=== PATIENT | male | born 1950 | race Caucasian/White ===

== ENCOUNTER → 2020-03-25 12:07 | Outpatient (BNVA) | payer OTHER, SELFPAY | PROVIDERS: Family Provider Family Medicine; PCP Family Medicine; Visit Provider Internal Medicine Cardiovascular Disease | DX: Z79.899 Other long term (current) drug therapy (principal); Z79.01 Long term (current) use of anticoagulants; R79.1 Abnormal coagulation profile; R06.02 Shortness of breath | CPT/HCPCS: 80048; 80076; 84443; 85025 ==

== ENCOUNTER → 2020-04-23 11:02 | Outpatient (BNVA) | payer OTHER, SELFPAY | PROVIDERS: Family Provider Family Medicine; PCP Family Medicine; Visit Provider Internal Medicine Cardiovascular Disease | DX: E03.9 Hypothyroidism, unspecified (principal) | CPT/HCPCS: 84443 ==

== ENCOUNTER 2020-08-14 13:17 | Outpatient (CLI) | payer OTHER, SELFPAY ==
--- NOTE | 2020-08-14 13:27 | CT_ITS ---
WS: [id number] CT CERVICAL SPINE TECHNIQUE: Noncontrast CT of the cervical spine with coronal and sagittal reformatted images. CLINICAL INFORMATION: SPINAL CORD INJURY COMPARISON: None. DLP: 626.[address] scans at [facility] use at least one of these dose optimization techniques: automat ed exposure control; mA and/or kV adjustment per patient size (includes targeted exams where dose is matched to clinical indication); or iterative reconstruction. FINDINGS: Straightening of the normal cervical lordosis. Prior postoperative changes anterior interbody cervica l fusion C4-C6. Interbody fusion grafts C4-C5 and C5-C6. Evidence of bony bridging beyond the confine s of the grafts. Posterior element fusion C3-C6 with interconnecting rods and dorsal lateral bone gra ft material. C2-C3: Mild disc bulging. Moderate facet arthropathy. Spinal canal and foramen are patent. C3-C4: Postoperative changes posterior fusion with laminectomy defects. Moderate bilateral bony hossein inal narrowing right greater than left. Spinal canal is patent. Moderate facet arthropathy. C4-C5: Postoperative changes anterior interbody cervical fusion. Laminectomy defects. Moderate left a nd mild right bony foraminal narrowing. C5-C6: Postoperative changes anterior interbody cervical fusion and posterior elements fusion. Modera te to severe right bony foraminal narrowing. Moderate left bony foraminal narrowing. Laminectomy defe cts. C6-C7: Postoperative changes disc osteophyte complex with endplate ridging. Moderate bilateral bony f oraminal narrowing right greater than left with osteophytic ridging. Spinal canal is patent. Laminect dot defects. C7-T1: Left eccentric disc osteophyte complex with mild left and no significant right foraminal narro wing. Spinal canal is patent. Lung apices are well aerated. Visualized thyroid is unremarkable. Dense carotid bulb calcification. CT/CT cervical spin wo con* [id number] IMPRESSION: 1. Straightening of the normal cervical lordosis with anterior interbody cervi yaakov fusion C4-C6. Evidence of interbody bony fusion beyond the confines of the grafts. 2. Posterior element ninfa and screw fixation C3-C6. Decompressive laminectomy d efects at these levels. 3. No evidence of hardware loosening. 4. Multilevel moderate to severe bony foraminal narrowing described above wors e at bilateral C3-4, left C4-5, right C5-C6, and right C6-7.
== END 2020-08-14 13:18 | disposition home or self-care (01) ==
LOC: RAD 13:23
PROVIDERS: PCP Family Medicine; Visit Provider Family Medicine
DX: S14.109A Unspecified injury at unspecified level of cervical spinal cord, initial encounter (principal); X58.XXXA Exposure to other specified factors, initial encounter
CPT/HCPCS: 72125

== ENCOUNTER 2020-10-29 14:49 | Outpatient (CLI) | payer OTHER, SELFPAY ==
--- NOTE | 2020-10-29 14:54 | XR_ITS ---
WS: [id number] CERVICAL SPINE 3 VIEWS HISTORY: DISEASE OF SPINAL CORD, UNSPECIFIED COMPARISON: CT 08/14/2020 Anterior cervical hardware extends from C4 to C6 with interbody spacers at C4-5 and C5-6. No lucency around the hardware. Posterior fusion hardware extends from the facet joints of C3-C6. Vertical rods are intact. Bone grafting is evident around the posterior fusion hardware with mixed fusion. Soft tissues are normal. Lateral masses are aligned. Odontoid is intact. XR/XR cervical spine 3V* [id number] IMPRESSION: Anterior and posterior cervical fusion as described above. No complications are evident.
== END 2020-10-29 14:50 | disposition home or self-care (01) ==
LOC: RADWPI 14:52
PROVIDERS: PCP Family Medicine; Visit Provider Physician Assistant
DX: G95.9 Disease of spinal cord, unspecified (principal); M43.22 Fusion of spine, cervical region
CPT/HCPCS: 72040

== ENCOUNTER → 2021-08-12 15:14 | Outpatient (BNVA) | payer OTHER, SELFPAY | PROVIDERS: PCP Family Medicine; Visit Provider Internal Medicine Cardiovascular Disease | DX: Z79.899 Other long term (current) drug therapy (principal); Z79.01 Long term (current) use of anticoagulants; I50.33 Acute on chronic diastolic (congestive) heart failure; R06.02 Shortness of breath; I48.0 Paroxysmal atrial fibrillation; R79.1 Abnormal coagulation profile; M79.89 Other specified soft tissue disorders; I11.0 Hypertensive heart disease with heart failure; Z13.228 Encounter for screening for other metabolic disorders | CPT/HCPCS: 80048; 83880 ==

== ENCOUNTER → 2022-02-03 14:43 | Outpatient (BNVA) | payer OTHER, SELFPAY | PROVIDERS: PCP Family Medicine; Visit Provider Nurse Practitioner Family | DX: I10 Essential (primary) hypertension (principal); F17.200 Nicotine dependence, unspecified, uncomplicated; Z79.01 Long term (current) use of anticoagulants | CPT/HCPCS: 99213; 99214 ==

== ENCOUNTER → 2022-03-30 10:40 | Outpatient (BNVA) | payer OTHER, SELFPAY | PROVIDERS: PCP Family Medicine; Visit Provider Internal Medicine Cardiovascular Disease | DX: I48.0 Paroxysmal atrial fibrillation (principal); Z79.01 Long term (current) use of anticoagulants; I10 Essential (primary) hypertension; Z79.899 Other long term (current) drug therapy; R00.1 Bradycardia, unspecified; I44.0 Atrioventricular block, first degree; F17.200 Nicotine dependence, unspecified, uncomplicated | CPT/HCPCS: 99214 ==

== ENCOUNTER → 2022-09-07 14:16 | Outpatient (BNVA) | payer OTHER, SELFPAY | PROVIDERS: PCP Family Medicine; Visit Provider Nurse Practitioner Family | DX: I48.0 Paroxysmal atrial fibrillation (principal); I10 Essential (primary) hypertension; Z79.01 Long term (current) use of anticoagulants; F17.210 Nicotine dependence, cigarettes, uncomplicated | CPT/HCPCS: 99214 ==

== ENCOUNTER → 2023-04-20 10:49 | Outpatient (BNVA) | payer OTHER, SELFPAY | PROVIDERS: PCP Family Medicine; Visit Provider Internal Medicine Cardiovascular Disease | DX: I48.0 Paroxysmal atrial fibrillation (principal); I10 Essential (primary) hypertension; Z79.899 Other long term (current) drug therapy; Z79.01 Long term (current) use of anticoagulants; F17.290 Nicotine dependence, other tobacco product, uncomplicated | CPT/HCPCS: 99213 ==

== ENCOUNTER → 2023-11-02 13:21 | Outpatient (BNVA) | payer OTHER, SELFPAY | PROVIDERS: PCP Family Medicine; Visit Provider Nurse Practitioner Family | DX: I48.0 Paroxysmal atrial fibrillation (principal); I10 Essential (primary) hypertension; F17.200 Nicotine dependence, unspecified, uncomplicated; Z79.01 Long term (current) use of anticoagulants | CPT/HCPCS: 36415; 80048; 85025; 99214 ==

== ENCOUNTER → 2024-02-16 10:10 | Outpatient (BNVA) | payer OTHER, SELFPAY | PROVIDERS: PCP Family Medicine; Visit Provider Internal Medicine Cardiovascular Disease | DX: I48.0 Paroxysmal atrial fibrillation (principal); I10 Essential (primary) hypertension; Z86.79 Personal history of other diseases of the circulatory system; Z79.899 Other long term (current) drug therapy; F17.200 Nicotine dependence, unspecified, uncomplicated; Z79.01 Long term (current) use of anticoagulants | CPT/HCPCS: 99214 ==

== ENCOUNTER → 2024-04-18 13:29 | Outpatient (BNVA) | payer OTHER, SELFPAY | PROVIDERS: PCP Family Medicine; Visit Provider Nurse Practitioner Family | DX: I48.0 Paroxysmal atrial fibrillation (principal) | CPT/HCPCS: 93005; 99214 ==

== ENCOUNTER → 2024-12-26 10:52 | Outpatient (BNVA) | payer OTHER, SELFPAY | PROVIDERS: PCP Family Medicine; Visit Provider Nurse Practitioner Family | DX: I48.0 Paroxysmal atrial fibrillation (principal); I10 Essential (primary) hypertension | CPT/HCPCS: 99213 ==

== ENCOUNTER → 2025-04-03 13:14 | Outpatient (BNVA) | payer OTHER, SELFPAY | PROVIDERS: PCP Family Medicine; Visit Provider Thoracic Surgery (Cardiothoracic Vascular Surgery) | DX: I96 Gangrene, not elsewhere classified (principal); L97.522 Non-pressure chronic ulcer of other part of left foot with fat layer exposed | CPT/HCPCS: 11042 ==

== ENCOUNTER 2025-04-04 13:21 | Outpatient (CLI) | payer OTHER, SELFPAY ==
--- NOTE | 2025-04-04 13:28 | XR_ITS ---
WS: [id number] XR foot LT min 3V* [id number] REASON FOR EXAM: Left Foot wound FINDINGS: No fracture or focal bone lesion. No bone erosion or periosteal reaction. Mild joint space narrowing with mild subchondral sclerosis in the DIP and PIP joints of the toes. Remainder of the joint spaces of the forefoot are intact and relatively well preserved. The joint spaces of the midfoot are intact and relatively well preserved. Subtalar joint is intact and relatively well preserved. 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 No findings of osteomyelitis noted.
== END 2025-04-04 13:22 | disposition home or self-care (01) ==
LOC: RAD 13:24
PROVIDERS: PCP Family Medicine; Visit Provider Thoracic Surgery (Cardiothoracic Vascular Surgery)
DX: L97.522 Non-pressure chronic ulcer of other part of left foot with fat layer exposed (principal); M19.072 Primary osteoarthritis, left ankle and foot
CPT/HCPCS: 73630

== ENCOUNTER 2025-04-11 15:31 | Outpatient (CLI) | payer OTHER, SELFPAY ==
--- NOTE | 2025-04-11 15:46 | USR_ITS ---
PROCEDURE INFORMATION: Exam: US Duplex Left Lower Extremity Arteries Or Arterial Bypass Grafts Exam date and time: 04/11/2025 3:51 PM Age: 75 years old Clinical indication: Other: Non healing ulcer; Additional info: Left foot wound TECHNIQUE: Imaging protocol: Left Real-time duplex scan of the arteries or arterial bypass grafts of the left lower extremity with 2-D nelson scale, color Doppler flow and spectral waveform analysis. Images documented and saved. COMPARISON: CR XR foot LT min 3V* [id number] 04/04/2025 1:37 PM FINDINGS: Left external iliac artery: Left iliac/common femoral artery: No occlusion or significant stenosis. Multiphasic waveform. Left common femoral artery: No occlusion or significant stenosis. Normal waveform. Left superficial femoral artery: No occlusion or significant stenosis. Multiphasic waveform. Left popliteal artery: No occlusion or significant stenosis. Multiphasic waveform. Left calf/foot arteries: No occlusion or significant stenosis in the visualized arteries. Dorsalis pedis artery is patent. Abnormal monophasic waveform within the posterior tibial and dorsalis pedis arteries. Other findings: Left RODRIGO is 1.0. US/[place] [id number] IMPRESSION: 1. Abnormal monophasic waveforms within the posterior tibial and dorsalis pedis arteries suggesting small-vessel runoff disease [id number] on the left. 2. No significant stenosis or occlusion otherwise, with multiphasic waveform at and above the knee. 3. Left ABIs 1.0.
== END 2025-04-11 15:32 | disposition home or self-care (01) ==
LOC: RAD 15:32
PROVIDERS: PCP Family Medicine; Visit Provider Thoracic Surgery (Cardiothoracic Vascular Surgery)
DX: L97.522 Non-pressure chronic ulcer of other part of left foot with fat layer exposed (principal); I73.9 Peripheral vascular disease, unspecified
CPT/HCPCS: 93926; 97597

== ENCOUNTER → 2025-04-18 13:52 | Outpatient (BNVA) | payer OTHER, SELFPAY | PROVIDERS: PCP Family Medicine; Visit Provider Thoracic Surgery (Cardiothoracic Vascular Surgery) | DX: I96 Gangrene, not elsewhere classified (principal); L97.521 Non-pressure chronic ulcer of other part of left foot limited to breakdown of skin | CPT/HCPCS: 97597; A6021 ==

== ENCOUNTER → 2025-04-25 14:46 | Outpatient (BNVA) | payer OTHER, SELFPAY | PROVIDERS: PCP Family Medicine; Visit Provider Thoracic Surgery (Cardiothoracic Vascular Surgery) | DX: I96 Gangrene, not elsewhere classified (principal); L97.521 Non-pressure chronic ulcer of other part of left foot limited to breakdown of skin | CPT/HCPCS: 97597; A6021 ==

== ENCOUNTER → 2025-05-09 12:51 | Outpatient (BNVA) | payer OTHER, SELFPAY | PROVIDERS: PCP Family Medicine; Visit Provider Thoracic Surgery (Cardiothoracic Vascular Surgery) | DX: I96 Gangrene, not elsewhere classified (principal); L97.521 Non-pressure chronic ulcer of other part of left foot limited to breakdown of skin | CPT/HCPCS: 97597; A6021 ==

== ENCOUNTER → 2025-05-23 13:26 | Outpatient (BNVA) | payer OTHER, SELFPAY | PROVIDERS: PCP Family Medicine; Visit Provider Thoracic Surgery (Cardiothoracic Vascular Surgery) | DX: I96 Gangrene, not elsewhere classified (principal); L97.521 Non-pressure chronic ulcer of other part of left foot limited to breakdown of skin | CPT/HCPCS: 97597 ==

== ENCOUNTER → 2025-06-05 13:17 | Outpatient (BNVA) | payer OTHER, SELFPAY | PROVIDERS: PCP Family Medicine; Visit Provider Thoracic Surgery (Cardiothoracic Vascular Surgery) | DX: I96 Gangrene, not elsewhere classified (principal); L97.521 Non-pressure chronic ulcer of other part of left foot limited to breakdown of skin | CPT/HCPCS: 97597 ==

== ENCOUNTER → 2025-07-03 13:01 | Outpatient (BNVA) | payer OTHER, SELFPAY | PROVIDERS: PCP Family Medicine; Visit Provider Thoracic Surgery (Cardiothoracic Vascular Surgery) | DX: I96 Gangrene, not elsewhere classified (principal); L97.521 Non-pressure chronic ulcer of other part of left foot limited to breakdown of skin ==

== ENCOUNTER → 2025-08-13 14:37 | Outpatient (BNVA) | payer OTHER, SELFPAY | PROVIDERS: PCP Family Medicine; Visit Provider Thoracic Surgery (Cardiothoracic Vascular Surgery) | DX: I96 Gangrene, not elsewhere classified (principal); L97.521 Non-pressure chronic ulcer of other part of left foot limited to breakdown of skin | CPT/HCPCS: 97597; A6210; A6212 ==

== ENCOUNTER → 2025-08-27 14:20 | Outpatient (BNVA) | payer OTHER, SELFPAY | PROVIDERS: PCP Family Medicine; Visit Provider Thoracic Surgery (Cardiothoracic Vascular Surgery) | DX: Z09 Encounter for follow-up examination after completed treatment for conditions other than malignant neoplasm (principal); Z87.2 Personal history of diseases of the skin and subcutaneous tissue ==

== ENCOUNTER → 2025-09-03 15:53 | Outpatient (BNVA) | payer OTHER, SELFPAY | PROVIDERS: PCP Family Medicine; Visit Provider Internal Medicine Cardiovascular Disease | DX: I48.91 Unspecified atrial fibrillation (principal); Z79.01 Long term (current) use of anticoagulants; I95.89 Other hypotension; Z79.899 Other long term (current) drug therapy; F17.200 Nicotine dependence, unspecified, uncomplicated | CPT/HCPCS: 99213 ==